=== PATIENT | female | born 1955 | race Caucasian/White ===

== ENCOUNTER 2018-06-28 07:20 | Outpatient (CLI) | payer OTHER | END 2018-06-28 07:24 | disposition home or self-care (01) | LOC: SONOGRAMA 07:20 | DX: E04.1 Nontoxic single thyroid nodule (principal) ==

== ENCOUNTER 2019-01-12 07:10 | Outpatient (CLI) | payer OTHER | END 2019-01-12 07:17 | disposition home or self-care (01) | LOC: SONOGRAMA 07:10 | DX: E04.1 Nontoxic single thyroid nodule (principal) ==